=== PATIENT | male | born 1985 | race Asian ===

== ENCOUNTER 2020-07-25 23:12 | Emergency (ER) | payer BC ==
[~2020-07-25] VITALS: Ht 172.7 cm; Wt 68.2 kg
[2020-07-26] MEDS ORDERED: PERTUSS(ACELL),DIPH,TET VAC/PF 0.5 ML VIAL IM ONE (00:15)
[2020-07-26 00:17] VITALS: BP 140/94
== END 2020-07-26 00:25 | disposition home or self-care (01) ==
LOC: EMS 23:12
DX: S61.551A Open bite of right wrist, initial encounter (principal); I10 Essential (primary) hypertension; F17.210 Nicotine dependence, cigarettes, uncomplicated; W54.0XXA Bitten by dog, initial encounter; Y93.89 Activity, other specified; Y92.89 Other specified places as the place of occurrence of the external cause; Y99.8 Other external cause status
CPT/HCPCS: 90471; 90715